=== PATIENT | male | born 1955 | race Caucasian/White ===

== ENCOUNTER → 2017-06-08 | Outpatient (CLI) | payer OTHER ==
[~2017-06-08] MED LIST: ALPR-411 PO; ASPI81TA28 PO; CLB100 PO; INSDGI SC; MIRT30TA PO; OMEP40CA PO
[2017-06-08 16:54] LABS: HEPATITIS B AB NEG
[2017-06-11 07:28] LABS: CHLAMYDIA TRACH RNA*** NOT DETECTED (NOT DETECTED); GC (NEIS GONORRHOEAE)RNA** NOT DETECTED (NOT DETECTED)
== END | disposition home or self-care (01) ==
LOC: C.LABBFT 10:43
PROVIDERS: ATTEND Internal Medicine
DX: Z20.2 Contact with and (suspected) exposure to infections with a predominantly sexual mode of transmission (principal)

== ENCOUNTER → 2017-06-08 | Outpatient (CLI) | payer OTHER | END | disposition home or self-care (01) | LOC: C.LABSPEC 10:11 | PROVIDERS: ATTEND Internal Medicine | DX: R19.7 Diarrhea, unspecified (principal) ==

== ENCOUNTER → 2017-08-10 | Outpatient (CLI) | payer OTHER ==
[2017-08-10 12:26] LABS: BASO % 0.8 %; BASO ABS # 0.05 K/uL (0-0.2); COMPLETE YES; HEMATOCRIT 41.5 % (42-52); IG% 1.1 %; LYMPH % 32.9 %; LYMPH ABS # 2.05 K/uL (1.2-3.4); MEAN CELL VOLUME 83.5 fL (80-100); MEAN CORPUSCULAR HEMOGLOBIN 27.8 pg (25-34); MEAN CORPUSCULAR HGB CONC 33.3 g/dl (32-36); MEAN PLATELET VOLUME 9.8 fL (7.4-10.4); MONO % 9.6 %; NEUT % 51.6 %; PLATELET COUNT 169 K/uL (130-400); RED BLOOD COUNT 4.97 M/uL (4.7-6.1); WHITE BLOOD COUNT 6.23 K/uL (4.8-10.8)
[2017-08-10 12:31] LABS: ESTIMATED AVERAGE GLUCOSE 157 mg/dl; HA1C FLAG Normal (Normal)
[2017-08-10 12:39] LABS: ALT/SGPT 32 U/L (12-78); AST/SGOT 21 U/L (15-37); BLOOD UREA NITROGEN 20 mg/dl (7-18); BUN/CREATININE RATIO 17.9 (10-20); CALCIUM 8.4 mg/dl (8.5-10.1); CARBON DIOXIDE 30 mmol/L (21-32); CHLORIDE 104 mmol/L (98-107); CREATININE 1.13 mg/dl (0.60-1.40); GLUCOSE 131 mg/dl (70-99); POTASSIUM 4.1 mmol/L (3.5-5.1); SODIUM 138 mmol/L (136-145)
[2017-08-10 12:39] LABS: URINE APPEARANCE CLEAR (CLEAR); URINE BILIRUBIN NEG (NEG); URINE COLOR YELLOW; URINE NITRITE NEG (NEG); URINE PH 6.5 (4.5-7.5); URINE SPECIFIC GRAVITY 1.016 (1.000-1.030); UROBILINOGEN NEG (NEG); ZZUR CULT IF INDIC CLEAN CATCH NO
[2017-08-10 12:40] LABS: MANUAL MICROSCOPIC REQUIRED? NO; REVIEW REQ? NO
[2017-08-10 12:50] LABS: ALB/GLOB RATIO 1.3 (0.9-2); ALKALINE PHOSPHATASE 74 U/L (45-117); CHOLESTEROL 194 mg/dl (0-200); CHOLESTEROL/HDL RATIO 3.3; HDL CHOLESTEROL 59 mg/dl; LDL CHOLESTEROL CALCULATED 94 mg/dl; PROSTATE SPECIFIC ANTIGEN 0.524 ng/ml (0.000-4.000); TRIGLYCERIDES 204 mg/dl (0-150); VERY LOW DENSITY LIPOPROT CALC 41 mg/dl
== END | disposition home or self-care (01) ==
LOC: C.LABBFT 10:15
PROVIDERS: ATTEND Internal Medicine
DX: E11.9 Type 2 diabetes mellitus without complications (principal); E78.5 Hyperlipidemia, unspecified; Z12.5 Encounter for screening for malignant neoplasm of prostate

== ENCOUNTER → 2017-12-26 | Outpatient (CLI) | payer OTHER ==
[2017-12-26 12:41] LABS: HEMOGLOBIN A1C 6.8 % (4.5-5.6)
[2017-12-26 12:43] LABS: ALBUMIN 3.9 gm/dl (3.4-5.0); AST/SGOT 25 U/L (15-37); BLOOD UREA NITROGEN 19 mg/dl (7-18); CALCIUM 8.5 mg/dl (8.5-10.1); CARBON DIOXIDE 24 mmol/L (21-32); CHOLESTEROL 179 mg/dl (0-200); CREATININE 1.14 mg/dl (0.60-1.40); GLUCOSE 157 mg/dl (70-99); SODIUM 140 mmol/L (136-145)
[2017-12-26 12:54] LABS: ALKALINE PHOSPHATASE 73 U/L (45-117); ALT/SGPT 40 U/L (12-78); LDL CHOLESTEROL CALCULATED 97 mg/dl; TOTAL PROTEIN 6.7 gm/dl (6.4-8.2)
== END | disposition home or self-care (01) ==
LOC: C.LABBFT 09:23
PROVIDERS: ATTEND Internal Medicine
DX: E78.5 Hyperlipidemia, unspecified (principal); E11.9 Type 2 diabetes mellitus without complications

== ENCOUNTER 2018-01-17 06:23 | Inpatient (IN) | payer OTHER ==
[2018-01-08 13:16] VITALS: Ht 182.9 cm; Wt 93.5 kg
--- NOTE | 2018-01-08 13:51 | PAT Medication Instructions ---
Service Date January 08, 2018. Current Home Medication List Alprazolam (Xanax), 0.5-1 MG PO QID PRN for Anxiety Atorvastatin (Lipitor), 40 MG PO QPM Bupropion (Wellbutrin Sr), 150 MG PO BID Insulin Glargine (Lantus), 37 UNITS SC BID Mirtazapine Soltab (Remeron Soltab), 30 MG PO HS Naproxen (Naprosyn), 500 MG PO BID Omeprazole (Prilosec), 40 MG PO QAM Propranolol (Inderal), 20 MG PO QAM Medication Instructions For Your Scheduled Surgery -Check with your surgeon for instructions for: Naproxen (Naprosyn), 500 MG PO BID - Take the following medications the morning of surgery with a sip of water: Alprazolam (Xanax), 0.5-1 MG PO QID PRN for Anxiety (if needed) Bupropion (Wellbutrin Sr), 150 MG PO BID Omeprazole (Prilosec), 40 MG PO QAM Propranolol (Inderal), 20 MG PO QAM - Take the following medications as scheduled the night before surgery: Alprazolam (Xanax), 0.5-1 MG PO QID PRN for Anxiety (if needed) Atorvastatin (Lipitor), 40 MG PO QPM Bupropion (Wellbutrin Sr), 150 MG PO BID Insulin Glargine (Lantus), 37 UNITS SC BID Mirtazapine Soltab (Remeron Soltab), 30 MG PO HS - For Insulin Dependent Diabetic patients: Test blood sugar A.M. of surgery. - If BLOOD SUGAR IS GREATER THAN 150, take half of your regular dose of: Insulin Glargine (Lantus) -- TAKE 18 UNITS - If BLOOD SUGAR IS LESS THAN 150, do not take any: Insulin Glargine ( Lantus) If you have any questions please call us at [phone] or [phone] or [phone]
--- NOTE | 2018-01-08 14:52 | DIAGNOSTIC IMAGING REPORT ---
TWO VIEW CHEST CLINICAL HISTORY: Preoperative examination. FINDINGS: PA and lateral chest radiographs are obtained. No prior studies are available for comparison at the time of dictation. The cardiomediastinal silhouette is unremarkable. Prominent epicardial fat is noted at the right lung base. The lungs and pleural spaces are clear. There is no pneumothorax. The bony thorax appears intact. IMPRESSION: No active disease in the chest. Electronically signed by: Terrell Sanchez M.D. 01/08/2018 2:51 PM Dictated Date/Time: 01/08/2018 2:50 PM
[2018-01-08 15:36] LABS: BASO % 0.4 %; BASO ABS # 0.02 K/uL (0-0.2); EOS % 2.4 %; EOS ABS # 0.13 K/uL (0-0.5); HEMATOCRIT 38.4 % (42-52); HEMOGLOBIN 12.9 g/dL (14.0-18.0); IG# 0.04 K/uL (0.00-0.02); LYMPH % 29.8 %; LYMPH ABS # 1.62 K/uL (1.2-3.4); MEAN CELL VOLUME 82.2 fL (80-100); MEAN CORPUSCULAR HEMOGLOBIN 27.6 pg (25-34); MEAN CORPUSCULAR HGB CONC 33.6 g/dl (32-36); MONO % 8.8 %; MONO ABS # 0.48 K/uL (0.11-0.59); NEUT % 57.9 %; NEUT ABS # 3.14 K/uL (1.4-6.5); PLATELET COUNT 148 K/uL (130-400); RED CELL DISTRIBUTION WIDTH CV 13.3 % (11.5-14.5); RED CELL DISTRIBUTION WIDTH SD 40.3 fL (36.4-46.3); WHITE BLOOD COUNT 5.43 K/uL (4.8-10.8)
[2018-01-08 15:46] LABS: PTT PATIENT 23.1 SECONDS (21.0-31.0)
--- NOTE | 2018-01-16 12:39 | HISTORY & PHYSICAL EXAMINATION ---
DATE OF ADMISSION: 01/17/2018 CHIEF COMPLAINT: Left hip pain. HISTORY OF PRESENT ILLNESS: Patient is a 62-year-old gentleman with known osteoarthritis about his left hip. He had a previous right total hip arthroplasty approximately 15 years ago which has done well. He now has ongoing pain and disability with his left hip. He has pain with prolonged weightbearing and standing activities. He has difficulty with any kneeling, bending, or squatting activities. Due to ongoing pain and disability, he now desires to proceed with left total hip arthroplasty. PAST MEDICAL HISTORY: Includes type 2 diabetes, depression, essential tremor, hyperlipidemia. PAST SURGICAL HISTORY: Right total hip arthroplasty as above, appendectomy, right hemicolectomy, umbilical hernia repair. MEDICATIONS: Include omeprazole 40 mg daily, alprazolam 0.25 mg daily as needed for anxiety, 2 tablets at bedtime p.r.n. anxiety; bupropion HCL ER 150 mg twice daily, Lantus insulin as directed, metformin HCL ER 500 mg 2 tablets daily, propranolol HCL 20 mg twice daily, atorvastatin calcium 40 mg daily, mirtazapine 30 mg at bedtime. ALLERGIES: No known drug allergies. SOCIAL HISTORY: Noncontributory. REVIEW OF SYSTEMS: Noncontributory. PHYSICAL EXAMINATION: GENERAL: Well-nourished, well-developed male who appears stated age. HEENT: Normocephalic, atraumatic. Extraocular movements intact, oropharynx pink and moist. NECK: Supple without adenopathy. LUNGS: Clear to auscultation bilaterally. HEART: Regular rate and rhythm. ABDOMEN: Soft, nontender, nondistended. EXTREMITIES: The left hip demonstrates limited range of motion. There is limitation of active and passive internal/external rotation with pain at end range. X-RAYS: X-rays were reviewed. He has severe osteoarthritis about the left hip with complete loss of the joint space. There is deformation of the femoral head. There are cystic changes about the femoral head. ASSESSMENT: Left hip degenerative joint disease. PLAN: Risks versus benefits were discussed, consent was obtained. Patient's primary care physician is Dr. Sorenson. We will proceed with a left total hip arthroplasty as indicated.
[2018-01-17] VITALS (8 sets, daily range): BP systolic 120–159; BP diastolic 67–93; PULSE 64–82; TEMP 36.3–36.4; O2SAT 92–99
[~2018-01-17] VITALS: Ht 182.9 cm; Wt 93.5 kg
[~2018-01-17 06:23] MED LIST changes: +ACETAMINOPHEN 500 MG TAB PO SCH; -ASPI81TA28 PO; +ATOR-24 PO; +BUPR-79 PO; +CEFAZOLIN 2000MG IV PUSH 15 ML IV SCH; -CLB100 PO; +CeleBREX 200 MG CAP PO SCH; +DEXAMETHASONE 4 MG TAB PO SCH; +FAMOTIDINE 20 MG TAB PO SCH; +GABAPENTIN 600 MG PO SCH; +LACTATED RINGER'S 1000ML 1,000 ML IV SCH; +LACTATED RINGER'S 1000ML 500 ML IV SCH; +LACTATED RINGER'S 1000ML IV SCH; +METOCLOPRAMIDE HCL 10 MG TAB PO SCH; -MIRT30TA PO; +MIRT30TA2 PO; +NAPR-1169 PO; -OMEP40CA PO; +PRLSR20 PO; +PROP20TA67 PO; +ROPIVACAINE 5MG/ML 30 ML 150 MG, BUPIVACAINE 0.5% MPF INJ 30 ML, EpINEphrine HCL INJ 0.... INFIL SCH
[2018-01-17] MEDS ORDERED: MIDAZOLAM HCL 1 MG/ML 2ML VIAL ONE (06:42)
[2018-01-17] MEDS ORDERED: FENTANYL CITRATE INJ 50 MCG/1 ML 2 ML VIAL ONE (06:43)
[2018-01-17] MEDS ORDERED: BUPIVACAINE 0.5 % 5 MG/1 ML PF 10ML VIAL ONE (06:46)
--- NOTE | 2018-01-17 07:11 | History & Physical Bridge Note ---
H&P Re-Evaluation Bridge Note: I have examined the patient, reviewed the History & Physical and in the interval since the performance of the History & Physical I have noted the following changes of clinical significance: No changes noted
[2018-01-17] MEDS ORDERED: LIDOCAINE HCL 2% 2 ML VIAL (20MG/ML) ONE (08:04)
[2018-01-17] MEDS ORDERED: PROPOFOL IV EMULSION 10 MG/ML 20 ML VIAL ONE (08:05)
[2018-01-17] MEDS: TRANEXAMIC ACID INJ 1,000 MG x 2 Bags IV SCH ×4 (08:27→12:44)
[2018-01-17] MEDS ORDERED: FLUMAZENIL 0.1 MG/1 ML 10 ML VIAL IV PRN (08:30)
[2018-01-17] MEDS ORDERED: ONDANSETRON INJ 2 MG/ML 2 ML VIAL IV PRN ×2 (08:30→10:45)
[2018-01-17] MEDS ORDERED: LABETALOL HCL IV 5 MG/ML 20ML IV PRN (08:30)
[2018-01-17] MEDS ORDERED: ATROPINE SULFATE 0.1 MG/ML 5ML SYR IV PRN (08:30)
[2018-01-17] MEDS ORDERED: EpHEDrine SULFATE INJ 50 MG/ML AMP IV PRN (08:30)
[2018-01-17] MEDS ORDERED: PHENYLEPHRINE 100MCG/ML 5ML SYR IV PRN (08:30)
[2018-01-17] MEDS ORDERED: HYDROmorphone INJ 2 MG/ML SYR/VIAL IV PRN (08:30)
[2018-01-17] MEDS ORDERED: NALOXONE HCL 0.4 MG/1 ML VIAL/CARP IV PRN (08:30)
[2018-01-17] MEDS ORDERED: FENTANYL CITRATE INJ 50 MCG/1 ML 2 ML VIAL IV PRN (08:30)
[2018-01-17] MEDS ORDERED: MEPERIDINE HCL 25 MG/ML CARP IV PRN (08:30)
[2018-01-17] MEDS ORDERED: BACITRACIN 50000 UNIT VIAL ONE (08:32)
[2018-01-17] MEDS ORDERED: POVIDONE-IODINE OP SOLN 30 ML BTL ONE (08:32)
[2018-01-17] MEDS ORDERED: ORTHO JOINT ANESTHETIC ONE (08:32)
[2018-01-17] MEDS ORDERED: EpHEDrine SULFATE INJ 50 MG/ML AMP ONE (09:44)
[2018-01-17] MEDS ORDERED: SODIUM CHLORIDE 0.9% INJ 10 ML VIAL ONE (09:44)
[2018-01-17] MEDS ORDERED: EpHEDrine SULFATE 50MG/5ML SYR ONE (09:44)
--- NOTE | 2018-01-17 10:18 | [facility] Post Operative Brief Note ---
Immediate Operative Summary Operative Date January 17, 2018. Pre-Operative Diagnosis DEGENERATIVE JOINT DISEASE Post-Operative Diagnosis SAME PREOP Procedure(s) Performed LEFT TOTAL HIP ARTHROPLASTY Surgeon DR. Rowena CLARK Dicer Machine Operator Surgeon(s) Carmen TRIVEDI PAC Estimated Blood Loss 100ml Findings Consistent with Post-Op Diagnosis Specimens LEFT HIP BONE AND TISSUE Anesthesia Type MAC Spinal Regional Complication(s) none Disposition Disposition: Recovery Room / PACU Overlapping Procedure I was present for: the critical portions of procedure. I was immediately available: during the entire case
[2018-01-17] MEDS ORDERED: MAGNESIUM HYDROXIDE SUSP 30 ML UDC PO PRN (10:45)
[2018-01-17] MEDS ORDERED: ZOLPIDEM TARTRATE 5 MG TAB PO PRN (10:45)
[2018-01-17] MEDS ORDERED: METOCLOPRAMIDE HCL INJ 5 MG/ML 2 ML VIAL IV PRN (10:45)
[2018-01-17] MEDS ORDERED: OXYCODONE HCL IR 5 MG TAB (IMMEDIATE RELEASE) PO PRN (10:45)
[2018-01-17] MEDS ORDERED: TAMSULOSIN HCL 0.4 MG CAP PO PRN (10:45)
[2018-01-17] MEDS ORDERED: ALUMINUM/MAGNESIUM/SIMETH (MAALOX MAX) 30 ML UDC PO PRN (10:45)
[2018-01-17] MEDS ORDERED: MoRPHine SULFATE 4 MG/ML 1 ML CARP\\VIAL IV PRN (10:45)
[2018-01-17] MEDS ORDERED: PHARMACY GLYCEMIC MGMT CONSULT PRN (10:49)
--- NOTE | 2018-01-17 11:02 | Anesthesiology Progress Note ---
Anesthesia Post Op Note Date & Time January 17, 2018 at 11:02 Vital Signs Pain Intensity: 0 Vital Signs Past 12 Hours Date Time Temp Pulse Resp B/P (MAP) Pulse Ox O2 Delivery O2 Flow Rate FiO2 01/17/18 10:36 36.5 66 16 130/71 99 Oxymask 5 01/17/18 07:00 36.3 78 20 159/93 96 Room Air Notes Mental Status: alert / awake / arousable, participated in evaluation Pt Amnestic to Procedure: Yes Nausea / Vomiting: adequately controlled Pain: adequately controlled Airway Patency, RR, SpO2: stable & adequate BP & HR: stable & adequate Hydration State: stable & adequate Neuraxial Anesthesia: was administered, sensory block is resolving Anesthetic Complications: no major complications apparent
--- NOTE | 2018-01-17 11:20 | DIAGNOSTIC IMAGING REPORT ---
AP PELVIS, CROSSTABLE LATERAL LEFT HIP History: Left total hip arthroplasty. Degenerative arthritis. Postop. FINDINGS: The patient is status post a left total hip arthroplasty. The hardware is intact. No fracture or dislocation. Surgical drains are in place. Evidence for prior right total hip arthroplasty. IMPRESSION: Left total hip arthroplasty. No evidence for hardware complication. Electronically signed by: Andrae Woods M.D. 01/17/2018 11:18 AM Dictated Date/Time: 01/17/2018 11:13 AM
--- NOTE | 2018-01-17 11:58 | OPERATIVE REPORT ---
DATE OF OPERATION: 01/17/2018 PREOPERATIVE DIAGNOSIS: Osteoarthritis, left hip. POSTOPERATIVE DIAGNOSIS: Osteoarthritis, left hip. PROCEDURE: Left total hip arthroplasty. SURGEON: Dr. Jansen. CHILD CARE COORDINATOR: Lucho Lopez PA-C. ANESTHESIA: Spinal. COMPLICATIONS: None. IMPLANTS USED: Acetabular reamer used 56, acetabular shell 56, femoral stem 3 and femoral head +0 x 36 ceramic. CONDITION: Recovery room stable. OPERATION AND FINDINGS: Following induction of adequate spinal anesthesia, the patient was placed in right lateral decubitus position and left Rukhsana-Langenbeck incision was made. Subcutaneous tissue was sharply dissected. Electrocautery used for hemostasis. The fascia was incised throughout the length of the wound and a pierce scissor placed beneath the short external rotators. The pyriformis was tagged with #1 Vicryl. The short external rotators were divided from the posterior aspect of the femur using electrocautery. These were swept posteriorly. A T-capsulotomy incision was made and the hip was dislocated using a combination of flexion, adduction, and internal rotation. Exposure of the femoral neck with old-style Hohmann and a blunt Hohmann was carried out and a femoral rasp was utilized as a guide for making the appropriate level femoral neck cut. This bone fragment was removed and reserved on the back table. Next, attention was turned to the acetabulum where bone hook was used to retract the femur while the offset retractors were placed anterior and posteriorly. A double-angled Hohmann was placed in superior and anterior position exposing the acetabulum nicely. Acetabular labrum as well as posterior capsule elements were removed using a long knife and a long pickup. Fovea centralis was cleared of all soft tissue. Sequential reamings were carried up to a 56 and decision was made to proceed with impaction of a 56 trabecular metal cup. This was impacted and held using a single 35 mm bone screw. The acetabular liner was placed with 15 of elevated posterior wall in the superior and posterior position. Next, attention was turned to the femoral portion of the case where a Bovie and pickup was used to further clear short external rotators from their insertion on the femur. Box osteotome was used to gain access to the femoral canal and the T-handled rasp and a rattail rasp were used to further open and lateral the canal. Sequentially raspings were carried up to a 3 which gave good fit and fill of the proximal femur. A trial reduction was carried out and a 132 degree femoral neck component was chosen as the size to be used. A +0 x 36 mm ceramic femoral head was impacted into position, +0 head was utilized. The trial reduction was stable in all degrees of rotation with no [id number] impingement. The hip was dislocated. The trial components were removed and the final femoral stem, neck, and femoral head combination were assembled on the back table and impacted into position. Hip was relocated. Range of motion checked once again successful and the wound was irrigated. The pyriformis repaired to the greater trochanter using #1 Vicryl [id number] suture. A Hemovac drain was placed and the fascia was closed using #1 Vicryl, subcutaneous tissue was closed using 0 Dexon, and skin was closed with janet. Sterile dressing of Adaptic, 4 x 4's, ABDs, and foam tape was applied. The patient tolerated the procedure well. Due to the complex nature of the procedure, the entire surgery was performed with the operational assistance of Lucho Lopez PA-C. The assistant to the ceo, under direct supervision, was involved in the actual performance of all aspects of the surgical procedure including hemostasis, tissue retraction and incision, instrument management, patient positioning, and wound closure. I attest to the content of the Intraoperative Record and any orders documented therein. Any exception s are noted below.
[2018-01-17] MEDS: SODIUM CHLORIDE 0.9% 1000ML 1,000 ML IV SCH ×2 (12:44→20:43)
[2018-01-17] MEDS ORDERED: GLUCOSE 10 TABS/TUBE PO PRN (12:45)
[2018-01-17] MEDS ORDERED: CARBOHYDRATES FOR HYPOGLYCEMIA PO PRN (12:45)
[2018-01-17] MEDS ORDERED: GLUCAGON FOR INJ 1 MG VIAL IM PRN (12:45)
[2018-01-17] MEDS ORDERED: GLUCOSE 40% GEL 15 GM TUBE PO PRN (12:45)
[2018-01-17] MEDS ORDERED: DEXTROSE 50% 50 ML SYR IV PRN (12:45)
[2018-01-17] MEDS: FERROUS GLUCONATE 324 MG TAB PO SCH ×2 (12:58→17:52)
[2018-01-17] MEDS: KETOROLAC TROMETHAMINE 30 MG/ML VIAL IV. SCH ×3 (12:58→23:58)
--- NOTE | 2018-01-17 13:04 | Pharmacy Progress Note ---
Glycemic Control Intl Consult Date of Service January 17, 2018. Scope Glycemic Pharmacist consulted by Kelsy DEMARCO on 01/17/18 for glycemic control and to write orders per [facility] inpatient glycemic control protocol Objective Weight (Kilograms): 93.5 Accuchecks BSG (last 24hrs): Test 01/17/18 06:45 01/17/18 10:45 01/17/18 11:55 Bedside Glucose 134 mg/dl (70-99) 127 mg/dl (70-99) 130 mg/dl (70-99) Recent Pertinent Medications Outpatient Anti-diabetic Regimen: * Lantus 37 units SQ BID * A1c = 6.8 % 12/26/17 Risk Factors for Insulin Resistance: * Steroids: ortho mix + dex 8 mg PO in OR this AM - ordered dex 10 mg IV on POD # 1 am * Recent Surgery: L SAMANTHA * Diet: T2DM Assessment & Plan ASSESSMENT: * 62 yr old T2DM male s/p left hip surgery. * Anticipate temporary hyperglycemia due to administration of steroids. Ordered a dose of dexamethasone 10 IV on POD# 1 am. * Patient is well controlled on 74 units of basal insulin as an outpatient. Patient reports taking a partial dose of 16 units this morning prior to surgery. * Will initiate SQ basal and bolus insulin regimen. Dose will be calculated by stressing the patients home dose of 74 units. * 74 units/day with stress of 2 -> Lantus 24 units BID, CF 15, CR 6 * 74 units/day with stress of 3 -> Lantus 35 units BID, CF 10, CR 4 * For POD #0, I will order a single dose of 48 units (equivalent to full 24 hr basal dose based on stressed home dose) PLAN FOR INPATIENT GLYCEMIC CONTROL: * Basal insulin * Lantus 48 units SQ now * Lantus 35 units SQ BID on 01/18 * Bolus Insulin * NOVOLOG per scale ACHS or Q6hrs while NPO * Goal Range: Low 110 mg/dL - High 140 mg/dL * Correction Factor: 12 mg/dL/unit * Nutritional / Prandial insulin per carb ratio of 1 unit per 4 grams CHO consumed * Add overnight checks with coverage Thank you.
[2018-01-17] MEDS: INSULIN ASPART 100 UNITS/ML 3 ML PEN SC SCH ×4 (13:14→23:56)
[2018-01-17] MEDS ORDERED: INSULIN GLARGINE SOLOSTAR 100 UNITS/ML 3 ML PEN SC SCH (14:15)
[2018-01-17] MEDS ORDERED: INSULIN GLARGINE SOLOSTAR 100 UNITS/ML 3 ML PEN SC ONE (15:30)
[2018-01-17] MEDS: ACETAMINOPHEN 500 MG TAB PO SCH ×2 (15:54→23:57)
[2018-01-17] MEDS: CEFAZOLIN IV 2,000 MG in SYRINGE 0 ML IV SCH (17:52)
[2018-01-17] MEDS: BuPROPion SR 150 MG TABCR PO SCH (20:43)
[2018-01-17] MEDS: ASPIRIN 81 MG ECTAB PO SCH (20:44)
[2018-01-17] MEDS: DOCUSATE SODIUM 100 MG CAP PO SCH (20:44)
[2018-01-17] MEDS ORDERED: MIRTAZAPINE SOLTAB 15 MG PO SCH (21:00)
[2018-01-17] MEDS ORDERED: ATORVASTATIN 40 MG TAB PO SCH (21:00)
[2018-01-18] MEDS: CEFAZOLIN IV 2,000 MG in SYRINGE 0 ML IV SCH (02:06)
[2018-01-18 03:10] VITALS: BP 114/67; PULSE 77; TEMP 36.4; O2SAT 98
[2018-01-18] MEDS: INSULIN ASPART 100 UNITS/ML 3 ML PEN SC SCH ×2 (04:00→08:44)
[2018-01-18] MEDS: KETOROLAC TROMETHAMINE 30 MG/ML VIAL IV. SCH (05:51)
[2018-01-18] MEDS: SODIUM CHLORIDE 0.9% 1000ML 1,000 ML IV SCH (05:54)
[2018-01-18 06:28] LABS: BASO % 0.1 %; BASO ABS # 0.01 K/uL (0-0.2); HEMATOCRIT 28.4 % (42-52); HEMOGLOBIN 9.8 g/dL (14.0-18.0); IG# 0.04 K/uL (0.00-0.02); LYMPH % 9.8 %; LYMPH ABS # 1.03 K/uL (1.2-3.4); MEAN CELL VOLUME 81.6 fL (80-100); MEAN CORPUSCULAR HEMOGLOBIN 28.2 pg (25-34); MEAN CORPUSCULAR HGB CONC 34.5 g/dl (32-36); MEAN PLATELET VOLUME 9.6 fL (7.4-10.4); MONO % 9.1 %; MONO ABS # 0.95 K/uL (0.11-0.59); NEUT % 80.6 %; NEUT ABS # 8.43 K/uL (1.4-6.5); PLATELET COUNT 168 K/uL (130-400); RED CELL DISTRIBUTION WIDTH CV 13.4 % (11.5-14.5); RED CELL DISTRIBUTION WIDTH SD 39.7 fL (36.4-46.3); WHITE BLOOD COUNT 10.46 K/uL (4.8-10.8)
[2018-01-18 07:06] VITALS: BP 120/64; PULSE 76; TEMP 36.6; O2SAT 96
[2018-01-18 07:06] LABS: CALCIUM 7.6 mg/dl (8.5-10.1); CREATININE 1.14 mg/dl (0.60-1.40); POTASSIUM 3.9 mmol/L (3.5-5.1)
[2018-01-18] MEDS ORDERED: DEXAMETHASONE INJ 10 MG in SYRINGE 0 ML IV SCH (07:30)
--- NOTE | 2018-01-18 07:37 | Orthopedic Progress Note ---
Orthopedic Progress Note Date of Service January 18, 2018. Subjective Post OP Day: 1 Reports: feeling well Objective N/V intact, dressing C/D/I (Hemovac d/c'd), toes mobile Date Time Temp Pulse Resp B/P (MAP) Pulse Ox O2 Delivery O2 Flow Rate FiO2 01/18/18 07:06 36.6 76 16 120/64 (82) 96 Room Air 01/18/18 03:10 36.4 77 17 114/67 (83) 98 Room Air 01/17/18 23:02 36.4 82 18 120/67 (84) 92 Room Air 01/17/18 20:00 Room Air 01/17/18 19:44 36.4 81 17 137/87 (104) 96 Room Air 01/17/18 14:44 74 16 156/76 (102) 95 2.0 01/17/18 13:41 69 123/70 (87) 01/17/18 12:45 69 16 135/76 (95) 98 Room Air 01/17/18 12:06 36.4 64 18 128/75 (92) 99 Nasal Cannula 2.0 01/17/18 11:40 96 Nasal Cannula 2.0 01/17/18 11:40 96 Nasal Cannula 2.0 01/17/18 11:40 36.4 66 16 135/79 (97) 96 Nasal Cannula 2.0 01/17/18 11:26 36.9 01/17/18 11:22 62 01/17/18 11:22 62 16 100 01/17/18 11:21 145/78 01/17/18 11:17 61 12 100 01/17/18 11:17 62 12 01/17/18 11:16 151/78 01/17/18 11:12 63 12 100 01/17/18 11:12 63 12 01/17/18 11:10 147/79 01/17/18 11:07 65 17 100 01/17/18 11:07 65 17 01/17/18 11:06 64 18 132/77 100 01/17/18 11:06 36.5 64 01/17/18 11:02 114/65 01/17/18 11:01 67 17 100 01/17/18 11:01 68 17 01/17/18 10:56 65 22 01/17/18 10:56 64 22 100 01/17/18 10:55 131/77 01/17/18 10:52 136/78 01/17/18 10:51 66 20 01/17/18 10:51 66 20 100 01/17/18 10:36 36.5 66 16 130/71 99 Oxymask 5 Laboratory Results 24 Hours: Test 01/18/18 05:29 White Blood Count 10.46 K/uL Red Blood Count 3.48 M/uL Hemoglobin 9.8 g/dL Hematocrit 28.4 % Mean Corpuscular Volume 81.6 fL Mean Corpuscular Hemoglobin 28.2 pg Mean Corpuscular Hemoglobin Concent 34.5 g/dl Platelet Count 168 K/uL Mean Platelet Volume 9.6 fL Neutrophils (%) (Auto) 80.6 % Lymphocytes (%) (Auto) 9.8 % Monocytes (%) (Auto) 9.1 % Eosinophils (%) (Auto) 0.0 % Basophils (%) (Auto) 0.1 % Neutrophils # (Auto) 8.43 K/uL Lymphocytes # (Auto) 1.03 K/uL Monocytes # (Auto) 0.95 K/uL Eosinophils # (Auto) 0.00 K/uL Basophils # (Auto) 0.01 K/uL Assessment & Plan Assessment: 62 yo male stable POD #1 s/p left SAMANTHA Plan: 1. Med management 2. DVT prophylaxis- ASA, SCDs 3. PT/OT 4. D/C planning- home w/ HH
[2018-01-18] MEDS ORDERED: RXC5 PO (07:39)
[2018-01-18] MEDS ORDERED: ASPI-320 PO (07:39)
[2018-01-18] MEDS ORDERED: CLB200 PO (07:39)
[2018-01-18] MEDS ORDERED: ACET-24 PO (07:39)
--- NOTE | 2018-01-18 07:39 | Anesthesiology Progress Note ---
Anesthesia Post Op Note Date & Time January 18, 2018 at 07:39 Vital Signs Pain Intensity: 0.0 Vital Signs Past 12 Hours Date Time Temp Pulse Resp B/P (MAP) Pulse Ox O2 Delivery O2 Flow Rate FiO2 01/18/18 07:06 36.6 76 16 120/64 (82) 96 Room Air 01/18/18 03:10 36.4 77 17 114/67 (83) 98 Room Air 01/17/18 23:02 36.4 82 18 120/67 (84) 92 Room Air 01/17/18 20:00 Room Air 01/17/18 19:44 36.4 81 17 137/87 (104) 96 Room Air Notes Mental Status: alert / awake / arousable, participated in evaluation Pt Amnestic to Procedure: Yes Nausea / Vomiting: adequately controlled Pain: adequately controlled Airway Patency, RR, SpO2: stable & adequate BP & HR: stable & adequate Hydration State: stable & adequate Neuraxial Anesthesia: sensory block resolved Anesthetic Complications: no major complications apparent
--- NOTE | 2018-01-18 07:40 | Discharge Instructions ---
Discharge Instructions Date of Service January 18, 2018. Admission Reason for Admission: Left Hip Osteoarthritis Discharge Discharge Diagnosis / Problem: Left hip arthritis Discharge Goals Goal(s): Decrease discomfort, Improve function Activity Recommendations Activity Limitations: as noted below Weightbearing Status: Left weightbearing (as tolerated) . Instructions / Follow-Up Instructions / Follow-Up ACTIVITY RECOMMENDATIONS: SELF CARE INSTRUCTIONS AFTER TOTAL HIP REPLACEMENT Until the incision and soft tissues around your hip have healed, there is a possibility that the hip prosthesis could dislocate. A. Observe the following precautions to prevent dislocation: 1. Don't bend your hip greater than 90 degrees. 2. Avoid crossing your legs or ankles while standing or lying. 3. Sit with your feet placed 6 inches apart. 4. When sitting, keep your knees below your hips. Sit on a firm surface, avoid deep, soft chairs and couches. Use an elevated toilet seat in the bathroom. 5. Don't bend over at the waist. Use a long handled shoehorn and a sock aid to help you put on your shoes and socks. A injection molding machine offbearer can help you pick up truck driver objects that are too high or too low to reach. 6. Keep car riding to a minimum for at least one month after surgery. B. Your balance may be shaky for a while. Use crutches or a walker until directed by your doctor. C. Use hand rails when walking on stairs. D. Wear low heeled shoes with non-slip soles. E. Be sure that your floors are free of things that could trip you - throw rugs , electrical cords, small objects. Avoid wet and waxed floors, especially with crutches and canes. F. Try to walk several times a day with rest periods between. G. Continue with all the exercises taught to you in the hospital. Again, make walking a part of your daily routine. SPECIAL CARE INSTRUCTIONS: VERY IMPORTANT TO READ AND REVIEW A. You may still be at risk for phlebitis and blood clots. 1. Wear surgical stockings (ADEEL hose) for 2 weeks after surgery to improve circulation and reduce swelling. 2. Take Aspirin 81mg twice daily for 4 weeks or as directed by your doctor. This is your blood thinner. 3. High risk patients may be prescribed a stronger blood thinner if necessary. 4. If you are on Coumadin normally, your family doctor/altitude chamber technician should monitor your blood work. Expect a phone call the day of or the day after bloodwork is drawn to adjust your dosage. B. You must take antibiotics before having dental work, bladder, bowel and other surgery. Your doctor will provide you with a permanent card to carry describing precautions. C. Call [facility] if you have a fever, redness or swelling around the incision, cloudy drainage from incision, or sudden increase in pain in your hip, not relieved by your regular pain medication. D. Please call the office at if you have any concerns or questions about your operation or recovery. * YOU MAY SHOWER, NO TUB BATHS UNTIL CLEARED BY YOUR DOCTOR. * WEAR ADEEL HOSE 20 HOURS PER DAY FOR 2 WEEKS. * YOU SHOULD USE A WALKER OR CRUTCHES FOR 2-4 WEEKS. THIS WILL HELP PREVENT STRAIN ON YOUR HIP MUSCLE AND ALLOW IT TO HEAL PROPERLY. YOU MAY WEAN TO A CANE TOLERATED. * MOST PATIENTS WILL HAVE HOME NURSING FOR THERAPY. IF YOU DECIDE TO DO OUTPATIENT PHYSICAL THERAPY, PLEASE SCHEDULE THIS 3 TIMES PER WEEK. Silverlon- This is a large adhesive bandage that contains silver ions. This helps your incision heal by fighting off bacteria and protecting it from the outside environment. You are permitted to shower with this dressing. This will remain on your incision for 7 days and then should be removed. Some visible blood or drainage through the dressing window is normal. If there is significant drainage or leaking noted before the 7 days notify your doctor's office immediately. Once removed, keep incision clean and dry. If there is any drainage or redness noted, please call your surgeon. Zip Skin Closure You have a Zipline Closure System. As noted below, this keeps your incision closed. Change the dressing daily. Keep the wound covered with a dressing as it has the potential to snag on your clothing. The Zipline will remain on for a total of 2 weeks. Do not remove it! You will be given instructions by nursing staff at the time of discharge to care for your Zip Closure System. This devices uses plastic straps to keep your incision closed and protected throughout your recovery. If you have any questions please refer to these instructions first. FOLLOW UP VISIT: If appointment is not already scheduled: Please call [facility] to make a follow-up appointment for 2 weeks after your surgery at . Current Hospital Diet Patient's current hospital diet: Diabetes Type 2 Diet Discharge Diet Recommended Diet: Diabetes Type 2 Diet Procedures Procedures Performed: LEFT TOTAL HIP ARTHROPLASTY Pending Studies Studies pending at discharge: no Laboratory Results Hemoglobin A1c Test 12/26/17 09:28 Range/Units Estimated Average Glucose 148 mg/dl Hemoglobin A1c 6.8 H 4.5-5.6 % Lipid Panel Test 12/26/17 09:28 Range/Units Triglycerides Level 128 0-150 mg/dl Cholesterol Level 179 0-200 mg/dl HDL Cholesterol 56 mg/dl Cholesterol/HDL Ratio 3.2 LDL Cholesterol, Calculated 97 mg/dl Medical Emergencies . Who to Call and When: Medical Emergencies: If at any time you feel your situation is an emergency, please call 911 immediately. . Non-Emergent Contact Non-Emergency issues call your: Surgeon Call Non-Emergent contact if: temperature is above 101.5, your pain is not controlled, wound has increased drainage, wound has increased redness . "Provider Documentation" section prepared by Lucho Lopez PA-C. . [facility] Monitoring Program Search Results: patient reviewed within database, no issues identified
[2018-01-18] MEDS: ACETAMINOPHEN 500 MG TAB PO SCH (08:00)
[2018-01-18] MEDS ORDERED: PNEUMOCOCCAL POLYSACCHARIDES 25 MCG/0.5 ML VIAL/SYR IM. ONE (08:30)
[2018-01-18] MEDS ORDERED: PNEUMOCOCCAL ADMINISTRATION CHARGE ONE (08:30)
[2018-01-18] MEDS: BuPROPion SR 150 MG TABCR PO SCH (08:40)
[2018-01-18] MEDS: DOCUSATE SODIUM 100 MG CAP PO SCH (08:40)
[2018-01-18] MEDS: ASPIRIN 81 MG ECTAB PO SCH (08:40)
[2018-01-18] MEDS: FERROUS GLUCONATE 324 MG TAB PO SCH (08:40)
--- NOTE | 2018-01-18 08:43 | Pharmacy Progress Note ---
Pharmacy Glycemic Short Note 2 Date of Service January 18, 2018. OUTPATIENT ANTIDIABETIC REGIMEN: * Lantus 37 units SQ twice daily ASSESSMENT: * Mr Wyatt is a 62 y/o M with a PMH of depression, HLD, essential tremor, and very well controlled type 2 diabetes who presents for a left hip replacement. He is currently POD 1. The patient received dexamethasone 8 mg PO plus 4 mg topically yesterday. Today he is scheduled to received 10 mg IV. * Blood sugars yesterday were [phone] mg/dL. Overnight blood sugar was 105 mg/dL and fasting this morning was 103 mg/dL. The patient received 97 units of insulin yesterday with 64 units of basal insulin. With more aggressive dexamethasone dosing today will continue with aggressive dosing established yesterday. Provide a scale for this evening in case patient does not require as aggressive dosing as previously thought. Patient's regimen is currently basal heavy because it mimics his home regimen. * Post-prandial blood sugars rayo after dinner; however, Lantus was not given until 1530 yesterday. Tightened carbohydrate ratio slightly this morning as patient will receive even more dexamethasone. Correction factor appears appropriate. Add overnight accuchecks. PLAN FOR INPATIENT GLYCEMIC CONTROL: * Basal insulin * Lantus 35 units SQ this morning and then 24-35 units twice daily (24 units if blood sugar less than 160 mg/dL) * Bolus insulin * NovoLog per scale ACHS or Q6hrs while NPO * Goal Range: Low 110 mg/dL - High 140 mg/dL * Correction Factor: 12 mg/dL/unit * Nutritional / Prandial insulin per carb ratio of 1 unit per 3 grams CHO consumed PLAN FOR DISCHARGE: * Patient's blood sugars are very well controlled at home as evidenced by HbA1C. Patient is very basal heavy at home. If HbA1C increases above goal range at any point it is reasonable to add Novolog with the largest meal of the day.
[2018-01-18] MEDS ORDERED: PANTOprazole SOD 40 MG TAB PO SCH (09:00)
[2018-01-18] MEDS ORDERED: PROPRANOLOL HCL 20 MG TAB PO SCH (09:00)
[2018-01-18] MEDS ORDERED: MULTIVITAMIN TAB PO SCH (09:00)
[2018-01-18] MEDS ORDERED: INSULIN GLARGINE SOLOSTAR 100 UNITS/ML 3 ML PEN SC SCH ×2 (09:00→21:00)
[2018-01-18 10:28] VITALS: BP 120/64; PULSE 76; TEMP 36.6; O2SAT 96
[2018-01-18] MEDS ORDERED: CeleBREX 200 MG CAP PO SCH (21:00)
[2018-01-19] MEDS ORDERED: INSULIN ASPART 100 UNITS/ML 3 ML PEN SC SCH
== END 2018-01-18 12:05 | disposition home health service (06) | DRG 470 ==
LOC: C.ACU 06:23 → ENRESERV 11:12 → C.3E 11:45
PROC: 0SRB03Z Replacement of Left Hip Joint with Ceramic Synthetic Substitute, Open Approach (ICD-10-PCS; principal; 2018-01-17 09:00)
DX: M16.12 Unilateral primary osteoarthritis, left hip (principal); E11.9 Type 2 diabetes mellitus without complications; F41.9 Anxiety disorder, unspecified; F32.9 Major depressive disorder, single episode, unspecified; G25.0 Essential tremor; E78.5 Hyperlipidemia, unspecified; K21.9 Gastro-esophageal reflux disease without esophagitis; Z96.641 Presence of right artificial hip joint; Z86.010 Personal history of colon polyps; Z90.49 Acquired absence of other specified parts of digestive tract; Z98.0 Intestinal bypass and anastomosis status; Z98.890 Other specified postprocedural states; Z79.1 Long term (current) use of non-steroidal anti-inflammatories (NSAID); Z79.4 Long term (current) use of insulin; Z79.899 Other long term (current) drug therapy